=== PATIENT | female | born 1955 | race Caucasian/White ===

== ENCOUNTER 2021-05-19 13:19 | Emergency (ER) | payer OTHER ==
[2021-05-19 13:28] VITALS: BP 171/114; TEMP 98.4; BMI 17.2
== END 2021-05-19 13:55 | disposition home or self-care (01) ==
LOC: FER 13:19
DX: J02.9 Acute pharyngitis, unspecified (principal); Z11.52 Encounter for screening for COVID-19
CPT/HCPCS: 99283-25; C9803; U0003; U0005